=== PATIENT | female | born 1980 | race Caucasian/White ===

== ENCOUNTER 2018-05-17 15:03 | Emergency (ER) | payer MEDICAID, MEDICARE, OTHER ==
[2018-05-17] MEDS ORDERED: DiphenhydrAMINE 50 mg/ml Inj ONE (15:15)
[2018-05-17 15:16] VITALS: BMI 71.6
[2018-05-17] MEDS ORDERED: DiphenhydrAMINE 50 mg/ml Inj IM STA (15:16)
[2018-05-17 16:15] LABS: BASO # 0.1 K/uL (0.0-0.2); BASO % 0.4 % (0.0-2.0); EOS % 0.1 % (0.0-4.0); HEMOGLOBIN 11.8 g/dL (12.0-16.0); LYMPH # 0.8 K/uL (1.0-4.3); MEAN CELL VOLUME 98.8 fl (81.0-99.0); MEAN CORPUSCULAR HEMOGLOBIN 32.9 pg (27.0-31.0); MEAN CORPUSCULAR HGB CONC 33.3 g/dL (33.0-37.0); MEAN PLATELET VOLUME 8.1 fl (7.2-11.7); MONO # 0.8 K/uL (0.0-0.8); MONO % 5.2 % (0.0-10.0); NEUT % 89.3 % (50.0-75.0); PLATELET COUNT 344 K/uL (130-400); WHITE BLOOD COUNT 15.7 K/uL (4.8-10.8)
[2018-05-17 16:29] LABS: ALB/GLOB RATIO 1.2 (1.0-2.1); ALT/SGPT 36 U/L (9-52); AST/SGOT 95 U/L (14-36); BLOOD UREA NITROGEN 19 mg/dl (7-17); CALCIUM 9.4 mg/dL (8.4-10.2); GFR NON-AFRICAN AMERICAN > 60
[2018-05-17 16:32] LABS: ACETAMINOPHEN < 10.0 ug/ml (10.0-30.0); SALICYLATE < 1.0 mg/dl
[2018-05-17 16:38] LABS: VALPROIC ACID < 10.0 ug/mL (50.0-100.0)
--- NOTE | 2018-05-17 16:56 | ED PDOC ---
HPI: Psych/Substance Abuse Time Seen by Provider: 05/17/18 15:08 Chief Complaint (Nursing): Psychiatric Evaluation Chief Complaint (Provider): Psychiatric Evaluation ED Caveat: Uncooperative History Per: Patient, EMS History/Exam Limitations: clinical condition Additional Complaint(s): 38 year old female with pmHx of schizoaffective disorder, arrives to ED via EMS for a psychiatric evaluation. 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 Upon arrival to ED, patient is agitated and verbally abusive towards staff, stating "you're all trying to kill me". Otherwise, she denies any chest pain, shortness of breath, headache, abdominal pain, suicidal or homicidal ideation. PCP: none provided HPI and ROS limited secondary to patient's uncooperative nature. Past Medical History Reviewed: Historical Data, Nursing Documentation, Vital Signs Vital Signs: Last Vital Signs Temp 98.7 F 05/17/18 15:42 Pulse 101 H 05/17/18 16:28 Resp 18 05/17/18 16:28 BP 138/80 05/17/18 16:28 Pulse Ox 99 05/17/18 16:28 - Medical History PMH: Bipolar Disorder, Schizophrenia Denies: Diabetes, Hepatitis, HIV, HTN, Seizures, Sexually Transmitted Disease - Family History Family History: States: Unknown Family Hx - Immunization History Hx Tetanus Toxoid Vaccination: No Hx Influenza Vaccination: No Hx Pneumococcal Vaccination: No - Home Medications Home Medications: Ambulatory Orders Medication Instructions Recorded Ziprasidone HCl 20 mg PO HS 09/24/17 Ziprasidone HCl 60 mg PO QAM 09/24/17 Ziprasidone HCl 80 mg PO HS 09/24/17 - Allergies Allergies/Adverse Reactions: Allergies Allergy/AdvReac Type Severity Reaction Status Date / Time NUTS Allergy Uncoded 09/24/17 12:03 Review of Systems Review Of Systems: ROS cannot be obtained secondary to pt's inabilty to answer questions. Constitutional: Negative for: Fever, Chills Eyes: Negative for: Vision Change Cardiovascular: Negative for: Chest Pain, Palpitations Respiratory: Negative for: Cough, Shortness of Breath Gastrointestinal: Negative for: Nausea, Vomiting, Abdominal Pain Genitourinary Female: Negative for: Dysuria, Frequency, Vaginal Discharge, Vaginal Bleeding Musculoskeletal: Negative for: Neck Pain, Back Pain Skin: Negative for: Rash Neurological: Negative for: Weakness, Numbness, Headache, Dizziness Psych: Negative for: Suicidal ideation Physical Exam - Reviewed Nursing Documentation Reviewed: Yes Vital Signs Reviewed: Yes - Physical Exam Appears: Positive for: In Acute Distress (agitiated; unkept) Head Exam: Positive for: ATRAUMATIC, NORMAL INSPECTION, NORMOCEPHALIC Skin: Positive for: Normal Color Eye Exam: Positive for: Normal appearance ENT: Positive for: Normal ENT Inspection Neck: Positive for: Normal, Painless ROM, Supple Cardiovascular/Chest: Positive for: Regular Rate, Rhythm Respiratory: Positive for: Normal Breath Sounds. Negative for: Respiratory Distress Pulses-Radial (L): 2+ Pulses-Radial (R): 2+ Gastrointestinal/Abdominal: Positive for: Normal Exam, Bowel Sounds (normal), Soft. Negative for: Tenderness Back: Positive for: Normal Inspection. Negative for: L CVA Tenderness, R CVA Tenderness, Vertebral Tenderness Extremity: Positive for: Normal ROM (upper/lower), Capillary Refill (<2s). Negative for: Tenderness, Deformity, Swelling Lymphatic: Positive for: Normal Exam Neurologic/Psych: Positive for: Alert, communication specialist II-XII (intact), Oriented, Mood/Affect (agitated, yelling at staff), Gait (steady without assistance). Negative for: Motor/Sensory Deficits, Aphasia - Laboratory Results Result Diagrams: 05/17/18 16:12 05/17/18 16:12 Urine POC: Negative Urine dip results: Negative for: Leukocyte Esterase, Blood, Nitrate, Ketones, Glucose, Bilirubin, Protein - ECG ECG: Positive for: Viewed By Me (Interpreted by ED attending) ECG Rhythm: Positive for: Normal QRS, Normal ST Segment, Sinus Tachycardia. Negative for: ST/T Changes O2 Sat by Pulse Oximetry: 99 (RA) Pulse Ox Interpretation: Normal - Radiology X-Ray: Viewed By Me (Interpreted by Dr. Man) X-Ray Interpretation: No Acute Disease Medical Decision Making Medical Decision Making: Time: 1514 Initial Plan: * Psychiatric evaluation * 1:1 * Restraints * Labs * CXR * EKG * POC preg * UA * UDS Time: 1514 --Secondary to patient's agitation, patient continues to be verbally abusive to staff. Pateint is placed on 4-point restraints with additional Ativan 2mg, Benadryl 25mg, and Haldol 5mg ordered. Case discussed with Dr. Man at bedside. Time: 1724 --Upon crisis evaluation, patient will require [facility] screening as per Dr. Madrid. Time: 2199 --Patient medically cleared for [facility] psychiatric screening. Diagnostic testing results discussed with Dr. Man. Leukocytosis most likely reactive; no source of infection. Patient sleeping calmly in stretcher, unrestrained. Vital signs stable. 1:[address] Clinical Impression: Schizoaffective disorder Patient care endorsed to JENI Hoang, who was made aware of diagnostic studies and pending [facility] screening. Patient vitals stable at this time, awake and eating dinner. Tolerating PO without difficulty. Ambulating with steady gait, A&Ox3. Scribe Attestation: Documented by Steph Bear, acting as a scribe for Natasha Bryson PA-C. Provider Scribe Attestation: All medical record entries made by the Scribe were at my direction and personally dictated by me. I have reviewed the chart and agree that the record accurately reflects my personal performance of the history, physical exam, medical decision making, and the department course for this patient. I have also personally directed, reviewed, and agree with the discharge instructions and disposition. Disposition - Clinical Impression Clinical Impression: Schizoaffective disorder, Leukocytosis - Patient ED Disposition Is Patient to be Admitted: Transfer of Care - Disposition Disposition: Transfer of Care Disposition Time: 23:00 Condition: STABLE Forms: [facility] (Korean) Patient Signed Over To: Omid Hoang (Pending [facility] Screening)
[2018-05-17 18:30] LABS: BANDS 3 % (0-2); EOSINOPHIL 1 % (0-7); LYMPHOCYTE 7 % (20-50); MONOCYTE 5 % (0-10); NEUTROPHIL 84 % (42-75); TOTAL CELLS COUNTED 100
[2018-05-17 18:31] LABS: ANISOCYTOSIS MODERATE; HYPOCHROMIC SLIGHT; POIKILOCYTOSIS SLIGHT
[2018-05-17 18:59] LABS: PLATELET ESTIMATE NORMAL (NORMAL)
[2018-05-17 20:40] LABS: SQUAMOUS EPITHIAL 1 /hpf (0-5); URINE BACTERIA RARE (<OCC); URINE BILIRUBIN NEGATIVE (NEGATIVE); URINE BLOOD NEGATIVE (NEGATIVE); URINE CLARITY SLIGHTY-CLOUDY (Clear); URINE COLOR YELLOW (YELLOW); URINE GLUCOSE (UA) NEG (Normal); URINE LEUKOCYTE ESTERASE NEG Leu/uL (Negative); URINE PROTEIN NEGATIVE (NEGATIVE)
[2018-05-17 20:51] LABS: BARBITURATES, UR NEGATIVE (NEGATIVE); BENZODIAZEPINES, UR NEGATIVE (NEGATIVE); OPIATES, UR NEGATIVE (NEGATIVE); PHENCYCLIDINE, UR NEGATIVE (NEGATIVE)
--- NOTE | 2018-05-18 02:09 | ED PDOC ---
- Laboratory Results Result Diagrams: 05/17/18 16:12 05/17/18 16:12 Urine POC: Negative - ECG O2 Sat by Pulse Oximetry: 99 (RA) - Progress ED Course And Treament: 2300 Signed out to me pending [facility] screen 2344 On my intial evaluation, pt. seen pacing in room speaking to herself. Offers no complaints. Pending [facility] screen. 0220 Sleeping comfortably. 0430 Still sleeping comfortably. Pending [facility]. <Omid Hoang - Last Filed: 05/18/18 06:00> - Laboratory Results Result Diagrams: 05/17/18 16:12 05/17/18 16:12 <Nader Lawler - Last Filed: 05/18/18 06:15> Medical Decision Making Medical Decision Makin Pending [facility] eval, will endorse to Dr. Gomez <Nader Lawler - Last Filed: 05/18/18 06:15> Disposition - POA Present On Arrival: None - Disposition Disposition: Transfer of Care (Dr. Lawler continued care at the end of my shift pending [facility] screen) Disposition Time: 06:00 <Omid Hoang - Last Filed: 05/18/18 06:00> - POA Present On Arrival: None - Disposition Disposition: Transfer of Care Disposition Time: 07:00 Patient Signed Over To: Nakul Gomez Handoff Comments: pending [facility] eval <Nader Lawler - Last Filed: 05/18/18 06:15> - Clinical Impression Clinical Impression: Schizoaffective disorder, Leukocytosis - Disposition Condition: STABLE Forms: [facility] (Serbian)
--- NOTE | 2018-05-18 07:12 | ED PDOC ---
- Laboratory Results Result Diagrams: 05/17/18 16:12 05/17/18 16:12 Urine POC: Negative - ECG O2 Sat by Pulse Oximetry: 99 (RA) Pulse Ox Interpretation: Normal - Progress ED Course And Treament: 1500: Dr. Deluca to bakari on [facility]. Medical Decision Making Medical Decision Making: Time: 0700 -- Patient endorsed to me by Dr. Lawler, pending [facility] evaluation. Scribe Attestation: Documented by Aniyah Lopez, acting as a scribe for Nakul Gomez MD. Provider Scribe Attestation: All medical record entries made by the Scribe were at my direction and person ally dictated by me. I have reviewed the chart and agree that the record accurately reflects my personal performance of the history, physical exam, medical decision making, and the department course for this patient. I have also personally directed, reviewed, and agree with the discharge instructions and disposition. Disposition - Clinical Impression Clinical Impression: Schizoaffective disorder, Leukocytosis - POA Present On Arrival: None - Disposition Disposition: Transfer of Care Disposition Time: 15:10 Condition: STABLE
--- NOTE | 2018-05-18 07:53 | RAD ---
Date of service: 05/17/2018 HISTORY: clearance COMPARISON: No prior. FINDINGS: LUNGS: No active pulmonary disease. PLEURA: No significant pleural effusion identified, no pneumothorax apparent. CARDIOVASCULAR: No aortic atherosclerotic calcification present. Normal cardiac size. No pulmonary vascular congestion. OSSEOUS STRUCTURES: No significant abnormalities. VISUALIZED UPPER ABDOMEN: Normal. OTHER FINDINGS: None. IMPRESSION: No active disease.
--- NOTE | 2018-05-18 15:29 | ED PDOC ---
- Laboratory Results Result Diagrams: 05/17/18 16:12 05/17/18 16:12 Urine POC: Negative - ECG O2 Sat by Pulse Oximetry: 99 (RA) Pulse Ox Interpretation: Normal Medical Decision Making Medical Decision Making: Time: 1500 -- Patient endorsed to me by Dr. Gomez, pending [facility] evaluation. Patient is medically optimized at this time. No clinical indication for any medical intervention. 20:15 Patient is becoming increasingly agitated amnd trying to walk out of the room, requiring chemical sedation at this time. 0000 Pt remains stable and comfortable. Easily re-directed at this time not needing further sedation. Continues to await bed at [facility]. Will be signed out to Dr. Olivo pending transfer to [facility]. Scribe Attestation: Documented by Aniyah Lopez, acting as a scribe for Jami Deluca MD. Provider Scribe Attestation: All medical record entries made by the Scribe were at my direction and personally dictated by me. I have reviewed the chart and agree that the record accurately reflects my personal performance of the history, physical exam, medical decision making, and the department course for this patient. I have also personally directed, reviewed, and agree with the discharge instructions and disposition. Disposition - Clinical Impression Clinical Impression: Schizoaffective disorder, Leukocytosis - POA Present On Arrival: None - Disposition Disposition: Transfer of Care Disposition Time: 00:10 (P[place] pending transfer to [facility]) Condition: STABLE Forms: [employer] (Upper Sorbian)
--- NOTE | 2018-05-18 17:45 | CARD ---
APPROVED REPORT Date of service: 05/17/2018 EKG Measurement Heart [id number] <Conclusion> Sinus tachycardia Otherwise normal ECG
--- NOTE | 2018-05-19 00:12 | ED PDOC ---
- Laboratory Results Result Diagrams: 05/17/18 16:12 05/17/18 16:12 Urine POC: Negative - ECG O2 Sat by Pulse Oximetry: 99 (RA) Medical Decision Making Medical Decision Makin:00 Patient is signed out to me by Jami Deluca MD pending [facility] bed availability. Scribe Attestation: Documented byJami Loza, acting as a scribe for Jamari Olivo MD. Provider Scribe Attestation: All medical record entries made by the Scribe were at my direction and personally dictated by me. I have reviewed the chart and agree that the record accurately reflects my personal performance of the history, physical exam, medi juanito decision making, and the department course for this patient. I have also personally directed, reviewed, and agree with the discharge instructions and disposition. Disposition - Clinical Impression Clinical Impression: Schizoaffective disorder, Leukocytosis - POA Present On Arrival: None - Disposition Disposition: Transfer of Care Disposition Time: 07:00 Condition: FAIR
--- NOTE | 2018-05-19 09:44 | ED PDOC ---
- Laboratory Results Result Diagrams: 05/17/18 16:12 05/17/18 16:12 Urine POC: Negative - ECG O2 Sat by Pulse Oximetry: 100 (RA) Pulse Ox Interpretation: Normal - Progress ED Course And Treament: 1013: Stable. [facility] accepted. Will got the ER and get further evaluation and treatment. Medical Decision Making Medical Decision Making: Time: 0700 -- Patient endorsed to me by Dr. Olivo, pending [facility] evaluation. Scribe Attestation: Documented by Aniyah Lopez, acting as a scribe for Nakul Gomez MD. Provider Scribe Attestation: All medical record entries made by the Scribe were at my direction and personally dictated by me. I have reviewed the chart and agree that the record accurately reflects my personal performance of the history, physical exam, me dical decision making, and the department course for this patient. I have also personally directed, reviewed, and agree with the discharge instructions and disposition. Disposition - Clinical Impression Clinical Impression: Schizoaffective disorder, Leukocytosis - POA Present On Arrival: None - Disposition Disposition: Other Institution Disposition Time: 10:14 Condition: STABLE
[2018-05-19 10:51] VITALS: BP 106/59; PULSE 79; RESP 16; TEMP 98.2
[2018-05-19 22:11] VITALS: O2SAT 99
== END 2018-05-19 12:15 | disposition short-term general hospital (02) ==
LOC: H.ER 15:03
DX: F25.9 Schizoaffective disorder, unspecified (principal); D72.829 Elevated white blood cell count, unspecified; Z86.59 Personal history of other mental and behavioral disorders; Z00.8 Encounter for other general examination
CPT/HCPCS: 71045; 80053; 80164; 81003; 81025; 82948; 83735; 84100; 84443; 85025; 93005; 96372; 99285; G0480; J1200; J1630; J2060